=== PATIENT | male | born 1965 | race African-American/Black ===

== ENCOUNTER 2017-02-10 02:06 | Observation (INO) | payer SELFPAY ==
[2017-02-10] VITALS (10 sets, daily range): BP systolic 113–183; BP diastolic 55–98; PULSE 58–76; RESP 16–20; TEMP 96.8–99; O2SAT 97–100
[~2017-02-10 02:06] MED LIST: INDO50CA PO
[2017-02-10] MEDS ORDERED: ASPIRIN 81 MG CHEW TAB PO SCH (02:20)
[2017-02-10] MEDS: NITROGLYCERIN 0.4 MG SL 25 TABS/BTL SL PRN ×2 (02:46→02:51)
[2017-02-10] MEDS ORDERED: SODIUM CHLORIDE 0.9% FLUSH 10 ML FLUSH IV FLUSH PRN (03:45)
[2017-02-10] MEDS ORDERED: REGADENOSON INJ 0.4 MG/5 ML SYR IV ONE (03:48)
--- NOTE | 2017-02-10 03:48 | PD ---
HPI Chief Complaint: Chest Pain Time Seen by Provider: 03:47 Travel History International Travel<30 days: No Contact w/Intl Traveler<30days: No Traveled to known affect area: No History of Present Illness HPI 51-year-old male presents to the emergency department for complaint of a sided chest pain proximally one hour prior to arrival to the emergency department that awakened him from sleep. Chest pain is 5-6/10 in intensity. Patient is able to drive herself to the hospital by private vehicle. Patient states he awakened from sleep with left-sided chest pain with mild radiation to the left posterior shoulder. No associated shortness of breath sweats nausea vomiting or otherwise referred pain except as mentioned. No primary care provider. Remote history of hypertension. Is not taking any prescription medications. Has had chest pain and the past with workup was negative stress test. Did take one Ecotrin prior to arrival to the emergency department. No history of recent long distance travel protracted bedrest surgical procedure personal history of family history of DVT or PE. Patient also denies personal history of CAD, dyslipidemia diabetes, tobaccoism or family history premature onset CAD. No recent respiratory illness or febrile illness. No injury. No skin rash. Patient is unable to identify exacerbating or alleviating factors. PFSH Past Medical History Narrative Medical Hypertension-untreated; herniorrhaphy; no tobacco use no alcohol use; nursing notes reviewed Cancer: No Cardiovascular Problems: Yes (hx of irregular heart beat) Diabetes: No Diminished Hearing: No GERD: Yes Hepatitis: No Hiatal Hernia: No Herniated Disk: Yes (LUMBAR) Hypertension: Yes (NO MEDS) Inguinal Hernia: Yes (LEFT GROIN AREA - HERNIA) Medical other: Yes (hx of reflux disease back lumbar) Musculoskeletal: Yes (LUMBAR BACK PAIN) Respiratory: No Immunizations Current: Yes Thyroid Disease: No Tetanus Vaccination: Unknown Influenza Vaccination: No Past Surgical History Abdominal Surgery: Yes (LEFT HERNIA REPAIR 2010) Other Surgery: Yes (NASAL SURGERY 2001) Social History Alcohol Use: No Tobacco Use: No Substance Use: No Allergies-Medications (Allergen,Severity, Reaction): Coded Allergies: No Known Allergies (Verified , 05/04/16) Reported Meds & Prescriptions Reported Meds & Active Scripts Active Indomethacin 50 Mg Cap 50 Mg PO Q8HR 10 Days Take with food, milk, or antacids to decrease stomach adverse effects. Review of Systems Except as stated in HPI: all other systems reviewed are Neg General / Constitutional: No: Fever, Chills HENT: No: Headaches Cardiovascular: Positive: Chest Pain or Discomfort (his chest pain or similar) Respiratory: No: Cough, Shortness of Breath Gastrointestinal: No: Nausea, Vomiting, Abdominal Pain Genitourinary: No: Flank Pain ( abdominal) Musculoskeletal: No: Myalgias, Arthralgias Skin: No Rash Neurologic: No: Weakness Psychiatric: Positive: Anxiety Endocrine: No: Heat Intolerance, Cold Intolerance Physical Exam Narrative Well-developed well-nourished male in no acute distress no respiratory distress GENERAL: SKIN: Warm and dry. HEAD: Normocephalic. EYES: No scleral icterus. No injection or drainage. NECK: Supple, trachea midline. No JVD or lymphadenopathy. CARDIOVASCULAR: Regular rate and rhythm without murmurs, gallops, or rubs. RESPIRATORY: Breath sounds equal bilaterally. No accessory muscle use. GASTROINTESTINAL: Abdomen soft, non-tender, nondistended. MUSCULOSKELETAL: No cyanosis, or edema. BACK: Nontender without obvious deformity. No CVA tenderness. Data Data Last Documented VS Vital Signs Date Time Temp Pulse Resp B/P (MAP) Pulse Ox O2 Delivery O2 Flow Rate FiO2 02/10/17 02:56 18 02/10/17 02:21 99.0 72 183/98 (126) 100 02/10/17 02:06 Room Air Orders Orders Admit Order (Ed Use Only) (02/10/17 ) ^ Saline Lock (02/10/17 03:46) Resp Oxygen Jon C Titrat 1-4 L (02/10/17 ) Notify Dr: Other (02/10/17 03:46) Sodium Chloride 0.9% Flush (Ns Flush) (02/10/17 09:00) Sodium Chloride 0.9% Flush (Ns Flush) (02/10/17 04:00) Place In Observation (02/10/17 03:45) Activity Bed Rest With Brp (02/10/17 03:45) Vital Signs (Adult) Q4H (02/10/17 03:45) Cardiac Rhythm .As Directed (02/10/17 03:45) Notify Dr: Other .PRN (02/10/17 03:45) Notify Parameters (02/10/17 03:45) Resp Oxygen Nasal Cannula (02/10/17 ) Diet Npo (02/10/17 Breakfast) Ckmb (Isoenzyme) Profile (02/10/17 05:45) Ckmb (Isoenzyme) Profile (02/10/17 08:45) Troponin I (02/10/17 05:45) Troponin I (02/10/17 08:45) Electrocardiogram (02/10/17 05:45) Electrocardiogram (02/10/17 08:45) ^ Obtain (02/10/17 03:45) Sodium Chloride 0.9% Flush (Ns Flush) (02/10/17 03:45) Sodium Chloride 0.9% Flush (Ns Flush) (02/10/17 09:00) Hammer Smith / Telemetry MEL.Q8H (02/10/17 03:45) MDM Medical Decision Making Medical Screen Exam Complete: Yes Emergency Medical Condition: Yes Medical Record Reviewed: Yes Interpretation(s) Chest x-ray no lobar infiltrate poor inspiratory effort poor inspiratory effort Vital Signs Date Time Temp Pulse Resp B/P (MAP) Pulse Ox O2 Delivery O2 Flow Rate FiO2 02/10/17 02:56 18 02/10/17 02:21 99.0 72 20 183/98 (126) 100 02/10/17 02:06 Room Air Metabolic panel values grossly within normal limits Troponin I less than 0.02, not elevated CK 373 mildly elevated with CK-MB of 1.1 not elevated MB percent 0.3% not elevated EKG sinus rhythm rate 62 and ventricular conduction delay no acute ST elevation or injury pattern change noted Coagulation studies within normal limits CBC is automated differential no leukocytosis white count normal 8400 with normal automated differential and hemoglobin 15.5 and normal range platelet count of 2 59,000 Differential Diagnosis Chest pain, atypical chest pain, ACS, myocardial infarction, esophageal spasm, PE, CHF, cholecystitis, musculoskeletal pain, aortic dissection, aortic aneurysm Narrative Course Patient placed on potline monitor IV access obtained specimens collected and sent for resulting patient administered aspirin 162 mg by mouth along with sublingual nitroglycerin 0.4 mg Balsam pain at rest while waiting for medication be administered a decreased on its own from 5-6/10 intensity was 3-4/ 10 intensity After 2 sublingual nitroglycerin pain is 0/10 intensity patient is informed of normal range value of troponin I less than 0.02 and no elevation of CK-MB percent Patient is aware plan for observation admission to chest pain center per protocol and is agreeable Patient's case discussed with on-call medicine physician Dr. Savage for observation admission to chest pain center at [place] Physician Communication Physician Communication discussed with DR Savage for [facility] Diagnosis Primary Impression: Chest pain Admitting Information Admitting Physician Requests: Observation Nan Perez MD Feb 10, 2017 03:48
[2017-02-10] MEDS ORDERED: SODIUM CHLORIDE 0.9% FLUSH 10 ML FLUSH IVF PRN (04:00)
[2017-02-10 05:22] LABS: BLOOD UREA NITROGEN 11 MG/DL (7-18); GLOMERULAR FILTRATION RATE 86 ML/MIN (>89)
[2017-02-10 05:23] LABS: ANION GAP 5 MEQ/L (5-15); BICARBONATE 31.4 MEQ/L (21.0-32.0); CHLORIDE 105 MEQ/L (98-107); CREATINE KINASE 373 U/L (39-308); POTASSIUM 3.7 MEQ/L (3.5-5.1); SODIUM (NA) 141 MEQ/L (136-145)
[2017-02-10 05:24] LABS: CKMB 1.1 NG/ML (0.5-3.6)
[2017-02-10 05:27] LABS: AUTOMATED NEUTROPHIL # 5.1 TH/MM3 (1.8-7.7); BASOPHIL # 0.1 TH/MM3 (0-0.2); BASOPHIL % 0.9 % (0.0-2.0); EOSINOPHIL # 0.4 TH/MM3 (0-0.4); EOSINOPHIL % 5.3 % (0.0-4.0); HEMO FLAGS DIFF FINAL; LYMPH % 26.4 % (9.0-44.0); LYMPHOCYTE # 2.2 TH/MM3 (1.0-4.8); MEAN CORPUSCULAR HEMOGLOBIN 29.3 PG (27.0-34.0); MEAN CORPUSCULAR HGB CONC 32.9 % (32.0-36.0); MONO % 7.5 % (0.0-8.0); NEUT % 59.9 % (16.0-70.0); PLATELET COUNT 259 TH/MM3 (150-450); RED BLOOD COUNT 5.28 MIL/MM3 (4.50-5.90); RED CELL DISTRIBUTION WIDTH 12.1 % (11.6-17.2); WHITE BLOOD COUNT 8.4 TH/MM3 (4.0-11.0)
[2017-02-10 05:28] LABS: APTT (PATIENT) 24.4 SEC (24.3-30.1); INTERNATIONAL NORMALIZED RATIO 0.9 RATIO
[2017-02-10 06:53] LABS: CREATINE KINASE 293 U/L (39-308)
[2017-02-10 07:05] LABS: CKMB 0.9 NG/ML (0.5-3.6)
[2017-02-10] MEDS: SODIUM CHLORIDE 0.9% FLUSH 10 ML FLUSH IV FLUSH SCH ×2 (08:45→21:56)
[2017-02-10 08:59] LABS: CREATINE KINASE 322 U/L (39-308)
[2017-02-10] MEDS ORDERED: SODIUM CHLORIDE 0.9% FLUSH 10 ML FLUSH IV FLUSH SCH (09:00)
[2017-02-10 09:12] LABS: CKMB 0.8 NG/ML (0.5-3.6)
--- NOTE | 2017-02-10 11:12 | HHI.HP ---
[facility] Service [facility] Primary Care Physician No Primary Care Physician Admission Diagnosis chest pain Diagnoses: (1) Chest pain Diagnosis: Principal (2) Hypertension Diagnosis: Secondary Chief Complaint: Chest pain Travel History International Travel<30 Days: No Contact w/Intl Traveler <30 Da: No Traveled to Known Affected Are: No History of Present Illness . Written by Bryce Castillo, acting as scribe for Dr. Sepulveda on 02/10/17 at 11:02 51-year-old Afro-[place] male with known history of hypertension, back pain who presented to hospital because of long-standing chest discomfort. Patient states that he has been explained discomfort for 5-6 months. He describes the pain as 7-8/10 on a pain scale. Located left lateral chest without any radiation to neck, back, shoulder, arm. There is some associated heart racing. Without any nausea, vomiting, diaphoresis, shortness breath, lightheadedness, dizziness. They usually last 5-10 minutes and resolved on its own. States the pain is worse over the last 6 months after he eats. During those episodes he does get discomfort, heart racing and increased mucus were he has to spit up mucus. No nausea or vomiting. As before the pain usually goes away within 10 minutes. Patient states that he had an episode like this 19 years ago in which this happened during eating ground beef. He had a full workup done with stress test, endoscopies, laboratory work and was found to have no acute abnormalities at that time. Patient was prompted to come to the ER this time because he woke up at 1:15 AM in the morning with the same symptoms. He was concerned that he may be having heart attack since his symptoms usually happen after he eats. This time is happening when he was lying down and sleeping. Patient does have history of hypertension, however his medication was discontinued because he lost weight, however he has gained 75 pounds back. On presentation he did have elevated blood pressure. Patient had workup done in emergency department and it was recommended that the patient be observed in the chest pain center for further evaluation and management Review of Systems Cardiovascular: COMPLAINS OF: Chest pain, Palpitations Past Family Social History Past Medical History Hypertension, untreated patient was taken off medications for the weight loss Chronic back pain Right hip pain Past Surgical History Left inguinal hernia repair Nasal surgery Reported Medications Reported Meds & Active Scripts Active Indomethacin 50 Mg Cap 50 Mg PO Q8HR 10 Days Take with food, milk, or antacids to decrease stomach adverse effects. Allergies: Coded Allergies: No Known Allergies (Verified , 05/04/16) Family History Reviewed and significant for mother alive at age 73, father alive at age 76 both of which are in good health Social History Denies alcohol and tobacco use. Physical Exam Vital Signs Vital Signs Date Time Temp Pulse Resp B/P (MAP) Pulse Ox O2 Delivery O2 Flow Rate FiO2 02/10/17 08:00 96.8 63 20 144/91 (108) 98 02/10/17 07:37 02/10/17 07:03 98 Room Air 02/10/17 07:00 98.1 58 18 113/55 (74) 98 Room Air 02/10/17 04:54 62 18 127/68 (87) 98 Room Air 02/10/17 02:56 18 02/10/17 02:21 100 21 02/10/17 02:21 99.0 72 20 183/98 (126) 100 02/10/17 02:06 Room Air Physical Exam GENERAL: Well-developed, well-nourished, in no acute distress. alert and orientated HEENT: Head is normocephalic without any lesions or masses noted. Facial features are symmetric. Eyes: Pupils equal round reactive to light. Extraocular muscles are intact. Conjunctivae were clear. Oropharyngeal: Pharynx without any erythema edema. Tongue is midline without deviation. Buccal mucosa is moist without any masses or lesions NECK: Supple without any masses. Trachea midline no deviation. No JVD, no bruits are appreciated CARDIAC: Regular rhythm, regular rate. S1/S2 are heard. No murmurs gallops or rubs. Reproducible tenderness noted in the left lateral chest LUNGS: Clear to auscultation bilaterally. No wheeze, rhonchi or rales. No use of accessory muscles on inspiration or expiration. ABDOMEN: Soft, nontender. No tenderness noted in epigastric region. Bowel sounds heard in all 4 quadrants. No organomegaly or masses. Negative rebound, negative guarding EXTREMITIES: No edema, pulses are equal bilaterally. No cyanosis or clubbing NEUROLOGY: Mood and affect appear appropriate. Cranial nerves II through XII grossly intact. Muscle strength 5/5 in upper and lower extremities bilaterally. Deep tendon reflexes are 2+ in upper and lower extremities bilaterally. Laboratory Laboratory Tests Test 02/10/17 02:26 02/10/17 06:27 02/10/17 08:30 White Blood Count 8.4 Red Blood Count 5.28 Hemoglobin 15.5 Hematocrit 47.0 Mean Corpuscular Volume 89.0 Mean Corpuscular Hemoglobin 29.3 Mean Corpuscular Hemoglobin Concent 32.9 Red Cell Distribution Width 12.1 Platelet Count 259 Mean Platelet Volume 7.3 Neutrophils (%) (Auto) 59.9 Lymphocytes (%) (Auto) 26.4 Monocytes (%) (Auto) 7.5 Eosinophils (%) (Auto) 5.3 Basophils (%) (Auto) 0.9 Neutrophils # (Auto) 5.1 Lymphocytes # (Auto) 2.2 Monocytes # (Auto) 0.6 Eosinophils # (Auto) 0.4 Basophils # (Auto) 0.1 CBC Comment DIFF FINAL Differential Comment Prothrombin Time 10.0 Prothromb Time International Ratio 0.9 Activated Partial Thromboplast Time 24.4 Blood Urea Nitrogen 11 Creatinine 1.10 Random Glucose 102 Calcium Level 8.8 Sodium Level 141 Potassium Level 3.7 Chloride Level 105 Carbon Dioxide Level 31.4 Anion Gap 5 Estimat Glomerular Filtration Rate 86 Total Creatine Kinase 373 293 322 Creatine Kinase MB 1.1 0.9 0.8 Creatine Kinase MB % 0.3 0.2 Troponin I LESS THAN 0.02 LESS THAN 0.02 LESS THAN 0.02 Result Diagram: 02/10/1722502/10/17225 Caprini VTE Risk Assessment Caprini VTE Risk Assessment: No/Low Risk (score <= 1) Caprini Risk Assessment Model Point Value = 1 Point Value = 2 Point Value = 3 Point Value = 5 Age 41-60 Minor surgery BMI > 25 kg/m2 Swollen legs Varicose veins or History of unexplained or recurrent spontaneous Oral contraceptives or hormone replacement Sepsis (< 1 month) Serious lung disease, including pneumonia (< 1 month) Abnormal pulmonary function Acute myocardial infarction Congestive heart failure (< 1 month) History of inflammatory bowel disease Medical patient at bed rest Age 61-74 Arthroscopic surgery Major open surgery (> 45 min) Laparoscopic surgery (> 45 min) Malignancy Confined to bed (> 72 hours) Immobilizing plaster cast Central venous access Age >= 75 History of VTE Family history of VTE Factor V Leiden Prothrombin [id number] Lupus anticoagulant Anticardiolipin antibodies Elevated serum homocysteine Heparin-induced thrombocytopenia Other congenital or acquired thrombophilia Stroke (< 1 month) Elective arthroplasty Hip, pelvis, or leg fracture Acute spinal cord injury (< 1 month) Prophylaxis Regimen Total Risk Factor Score Risk Level Prophylaxis Regimen 0-1 Low Early ambulation 2 Moderate Order ONE of the following: *Sequential Compression Device (SCD) *Heparin 5000 units SQ BID 3-4 Higher Order ONE of the following medications: *Heparin 5000 units SQ TID *Enoxaparin/Lovenox 40 mg SQ daily (WT < 150 kg, CrCl > 30 mL/min) *Enoxaparin/Lovenox 30 mg SQ daily (WT < 150 kg, CrCl > 10-29 mL/min) *Enoxaparin/Lovenox 30 mg SQ BID (WT < 150 kg, CrCl > 30 mL/min) AND/OR *Sequential Compression Device (SCD) 5 or more Highest Order ONE of the following medications: *Heparin 5000 units SQ TID (Preferred with Epidurals) *Enoxaparin/Lovenox 40 mg SQ daily (WT < 150 kg, CrCl > 30 mL/min) *Enoxaparin/Lovenox 30 mg SQ daily (WT < 150 kg, CrCl > 10-29 mL/min) *Enoxaparin/Lovenox 30 mg SQ BID (WT < 150 kg, CrCl > 30 mL/min) AND *Sequential Compression Device (SCD) Assessment and Plan Assessment and Plan Chest pain Patient with increased risk factors include age, hypertension Patient has been ruled out for acute coronary event with serial cardiac enzymes is negative, serial EKGs do not show any changes Will pursue nuclear stress test rule out any underlying ischemia Patient was counseled extensively on other etiologies to include muscle skeletal, gastroesophageal reflux, gastritis History of hypertension Blood pressure was elevated at 183/98 on presentation, however it did improve without any treatment Consider restarting blood pressure medication prior to discharge DVT prevention Low risk, early ambulation This note was transcribed by lopez Castillo. I, Dr. Sung Arceo personally performed the history, physical exam, and medical decision making; and confirmed the accuracy of the information in the transcribed note. Authenticated by Dr. Sung Arceo 02/10/17 at 11:17. Bryce Castillo Feb 10, 2017 11:12 Sung Quach MD Feb 11, 2017 08:34
--- NOTE | 2017-02-10 12:13 | EKG ---
Date Performed: 02/10/2017 Time Performed: 02:20:19 PTAGE: 51 years EKG: Sinus rhythm INTRAVENTRICULAR CONDUCTION DELAY ABNORMAL ECG Since PREVIOUS TRACING , no significant change noted PREVIOUS TRACIN05/05/2011 15.34 DOCTOR: Amandeep Tompkins Interpretating Date/Time 02/10/2017 12:12:37
--- NOTE | 2017-02-10 12:13 | EKG ---
Date Performed: 02/10/2017 Time Performed: 06:34:34 PTAGE: 51 years EKG: NORMAL Sinus rhythm RIGHT BUNDLE BRANCH BLOCK NEW T-WAVE CHANGES COMPARED TO THE PRIOR TRACING AND NONSPECIFIC BUT CLINI DOC CORRELATION IS NEEDED. ABNORMAL ECG PREVIOUS TRACING : 02/10/2017 02.20 DOCTOR: Amandeep Tompkins Interpretating Date/Time 02/10/2017 12:13:17
--- NOTE | 2017-02-10 13:06 | RADRPT ---
EXAM DATE/TIME: 02/10/2017 11:20 [facility] COMPARISON: No previous studies available for comparison. INDICATIONS : Left chest pain radiating to the left shoulder. Angina. DOSE: 35 mCi Tc99m Myoview at stress. 10.8 mCi Tc99m Myoview at rest. 0.4 mg Lexiscan STRESS SYMPTOMS: None noted. EJECTION FRACTION: 45% MEDICAL HISTORY : Hypertension. Gastroesophageal reflux disease. SURGICAL HISTORY : Inguinal hernia repair. ENCOUNTER: Initial ACUITY: 1 day PAIN SCALE: 6/10 LOCATION: Left chest TECHNIQUE: The patient underwent pharmacologic stress with infusion of prescribed dose. Continuous ECG tracing was monitored during stress. Gated SPECT imaging was performed after stress and conventional SPECT i maging was performed at rest. The examination was performed on a SPECT/CT scanner, both attenuation and non-corrected datasets were reviewed. FINDINGS: DISTRIBUTION: The maximum perfused segment at stress is in the lateral wall. PERFUSION STUDY: Mildly diminished relative perfusion involving the anteroseptal region without evidence of redistribu tion. GATED STUDY: Mild global hypokinesis. CONCLUSION: Mild LV dysfunction. No reversible ischemia. RISK CATEGORY: Intermediate (1-3% Annual Mortality Rate) Wilmar Xiong MD on February 10, 2017 at 13:00 Board Certified Radiologist. This report was verified electronically.
--- NOTE | 2017-02-10 13:58 | EKG ---
Date Performed: 02/10/2017 Time Performed: 08:20:56 PTAGE: 51 years EKG: SINUS BRADYCARDIA Right bundle branch block NONSPECIFIC ST & T-WAVE ABNORMALITY ABNORMAL EC G No significant change from prior electrocardiogram. PREVIOUS TRACING : 02/10/2017 06.34 DOCTOR: Osmar Fabian Interpretating Date/Time 02/10/2017 13:57:58
[2017-02-10] MEDS: CARVEDILOL 3.125 MG TAB PO SCH ×2 (14:14→21:55)
[2017-02-10] MEDS: LISINOPRIL 5 MG TAB PO SCH (14:14)
[2017-02-10] MEDS: PANTOPRAZOLE SOD 40 MG DELAYED RELEASE TAB PO SCH (14:14)
--- NOTE | 2017-02-10 14:42 | TR ---
Date Performed: 02/10/2017 Time Performed: 11:53:17 DOCTOR: Juan Hernandez DRUG LIST: CLINICAL HISTORY: REASON FOR TEST: Chest pain REASON FOR ENDING: OBSERVATION: CONCLUSION: Lexiscan stress test was performed under standard four minute protocol. Radionuclid e was injected one minute prior to ending the test. No electrocardiographic abormalities were present to suggest ischemia. Nuclear imaging and interpretation are pending. COMMENTS:
--- NOTE | 2017-02-10 22:45 | MB ---
cc: MARCO ANTONIO DUCKWROTH DO DATE OF CONSULTATION February 10, 2017 DATE OF 1965 REASON FOR CONSULTATION Cardiac recommendations, possible cardiomyopathy. HISTORY OF PRESENT ILLNESS Antoine Joe is a pleasant and 51-year-old male who presented to [facility] due to 5-6 months of chest pain. It appears that he gets chest pain on the center and left side of his chest which is burning in nature. He occasionally gets racing heart beat with that. He denies nausea, vomiting diaphoresis or shortness of breath with the episodes. These episodes usually last for about 5-10 minutes. The episode seem to come on after he eats. He had similar type episodes around 19 years ago after eating ground beef. He was told that he could be on a pill and that he could continue to eat ground beef but he just decided to cut ground beef out of his diet. At that time 19 years ago he had a full workup including stress test, endoscopies and laboratories and was not found to have any acute abnormalities. He states that the day before coming into the emergency room he ate loaded potato soup with chips for lunch and then a sandwich for dinner. He woke up around 1:00 a.m. with similar type feeling of burning in the left side of his chest into the epigastric region. He was concerned that he was having a heart attack and so he came to the emergency room. He was admitted to the Chest Pain Center and underwent a pharmacologic nuclear stress test. The stress test was read as no reversible ischemia and had mild LV dysfunction with an ejection fraction of 45%. I was asked to see him for further cardiovascular recommendations for possible cardiomyopathy, chest pain and hypertension. In speaking to him he has no further complaints. He also notes that he snores at night and has daytime somnolence. PAST MEDICAL HISTORY 1. Hypertension (the patient was previously treated for this but has since had weight loss and so all of his medications were stopped but since that time he has put the weight back on). 2. Chronic back pain. 3. Right hip pain. PAST SURGICAL HISTORY 1. Left inguinal hernia repair. 2. Nasal surgery. 3. EGD (19 years ago). ALLERGIES NO KNOWN DRUG ALLERGIES. MEDICATIONS 1. Indomethacin 50 milligrams every 8 hours for 10 days. FAMILY HISTORY Mother is alive at the age of 73, father is alive at the age of 76 and both of them are in good health. SOCIAL HISTORY Denies tobacco, alcohol or drug abuse. REVIEW OF SYSTEMS 14-systems were reviewed including osteopathic pertinent positives and negatives above, otherwise negative. PHYSICAL EXAMINATION VITAL SIGNS: Temperature 98.1, heart rate 76, blood pressure 162/83, respirations 20, pulse ox 100% on room air. GENERAL: In general, the patient appears well in no acute distress. Alert, awake and oriented x3. HEENT: Extraocular muscles are intact. Mucous membranes moist. NECK: Supple and overall large. No JVD at 45 degrees. Carotid upstroke is brisk in nature. HEART: Heart is regular rate and rhythm. Positive first and second heart sounds with no murmurs, gallops or rubs. LUNGS: Clear to auscultation bilaterally. No wheezes, rales or rhonchi. ABDOMEN: Soft, nontender, nondistended. No organomegaly noted. EXTREMITIES: Show no clubbing, cyanosis or edema. Femoral and distal pulses intact bilaterally. NEUROLOGICALLY: No focal deficits. SKIN: Warm, dry and intact. OSTEOPATHIC: No kyphoscoliosis. Mild lordosis. No paraspinal tender points. LABORATORY FINDINGS Hemoglobin 15.5, hematocrit 47.0, platelets 259. Potassium 3.7, BUN 11, creatinine 1.1. Troponin negative x3. CARDIOLOGY STUDIES Electrocardiogram (February 10, 2017 at 08:20) sinus bradycardia, right bundle branch block, nonspecific ST-T wave changes. IMPRESSION 1. Noncardiac chest pain, most likely GI in nature. 2. Possible gastric reflux. 3. Pharmacologic nuclear stress test (February 10, 2017) showing no definitive ischemia, ejection fraction 45%. 4. Possible cardiomyopathy with ejection fraction of 45%. 5. Obesity with a BMI of 42.9. 6. Probable sleep apnea. 7. Hypertension. RECOMMENDATIONS 1. Mr. Joe appears to be having more than likely reflux from eating and not cardiac chest pain. 2. I discussed this with the primary team and most likely he can have a workup by GI in the outpatient setting. 3. Overall, it appears that he most likely has sleep apnea as he does have an enlarged neck, an elevated BMI as well as snoring and daytime somnolence. I discussed this with the patient and he should have this worked up in the outpatient setting. 4. As far as possible cardiomyopathy this is more than likely due to the gating during nuclear stress test. We will obtain an echocardiogram to look at his overall left ventricular function, possible valvulopathies and cardiac structure. 5. From a cardiovascular standpoint no further inpatient workup is needed other than the echocardiogram. 6. For his hypertension he has been placed on Coreg and lisinopril, and if his ejection fraction is low these will be his treatment for his cardiomyopathy. 7. If there is any questions about his echocardiogram in the morning, please call, we will plan to see him on an as-needed basis. 8. A card was left for Mr. Joe for followup in the office with myself in 2-4 weeks. Thank you for allowing me to see Antoine Joe. If there any questions please do not hesitate to call. Marco Antonio Duckworth DO VGP/EO /5:22 PM /10:20 PM MTDGuy
[2017-02-11 01:51] VITALS: BP 134/92; PULSE 57; RESP 18; TEMP 98.5; O2SAT 99
[2017-02-11 05:05] VITALS: BP 131/89; PULSE 60; RESP 16; TEMP 98.2; O2SAT 100
[2017-02-11 08:00] VITALS: BP 136/75; PULSE 56; PULSE 60; RESP 18; TEMP 98; O2SAT 95
[2017-02-11 09:55] VITALS: PULSE 60
[2017-02-11] MEDS: CARVEDILOL 3.125 MG TAB PO SCH (10:01)
[2017-02-11] MEDS: PANTOPRAZOLE SOD 40 MG DELAYED RELEASE TAB PO SCH (10:01)
[2017-02-11] MEDS: SODIUM CHLORIDE 0.9% FLUSH 10 ML FLUSH IV FLUSH SCH (10:01)
[2017-02-11] MEDS: LISINOPRIL 5 MG TAB PO SCH (10:01)
[2017-02-11 11:24] LABS: HDL CHOLESTEROL 59.1 MG/DL (40.0-60.0)
[2017-02-11 12:00] VITALS: BP 128/79; PULSE 65; RESP 17; TEMP 98.1; O2SAT 94
--- NOTE | 2017-02-11 12:50 | ECHRPT ---
Indication: LV Fxn CONCLUSIONS Mild concentric left ventricular hypertrophy. The left ventricular systolic function is normal with an estimated ejection fraction in the range of 55-60%. No regional wall motion abnormalities are present. The right ventricular systoilc function is mildly decreased. Trivial pulmonary valve regurgitation. The inferior vena cava was not well visualized. BP: / HR: Rhythm: MEASUREMENTS (Male / Female) Normal Values Technical Quality:Adequate 2D ECHO LV Diastolic Diameter PLAX 5.1 cm 4.2 - 5.9 / 3.9 - 5.3 cm LV Systolic Diameter PLAX 4.0 cm IVS Diastolic Thickness 1.5 cm 0.6 - 1.0 / 0.6 - 0.9 cm LVPW Diastolic Thickness 1.1 cm 0.6 - 1.0 / 0.6 - 0.9 cm LV Relative Wall Thickness 0.5 RV Internal Dim ED PLAX 2.0 cm M-MODE Aortic Root Diameter MM 3.3 cm AV Cusp Separation MM 2.6 cm DOPPLER MR Peak Velocity 323.0 cm/s MR Peak Gradient 41.7 mmHg Mitral E Point Velocity 79.0 cm/s Mitral A Point Velocity 57.8 cm/s Mitral E to A Ratio 1.4 TR Peak Velocity 111.0 cm/s TR Peak Gradient 4.9 mmHg FINDINGS LEFT VENTRICLE Mild concentric left ventricular hypertrophy. The left ventricular systolic function is normal with an estimated ejection fraction in the range of 55-60%. No regional wall motion abnormalities are present. RIGHT VENTRICLE The right ventricular systoilc function is mildly decreased. LEFT ATRIUM The left atrial size is normal. RIGHT ATRIUM The right atrial size is normal. ATRIAL SEPTUM Normal atrial septal thickness without atrial level shunting by limited color doppler interrogation. AORTA The aortic root and proximal ascending aorta are normal in size on limited imaging. MITRAL VALVE Structurally normal mitral valve. No mitral valve stenosis or regurgitation. AORTIC VALVE Trileaflet aortic valve. No aortic valve stenosis or regurgitation. TRICUSPID VALVE Structurally normal tricuspid valve. No tricuspid valve stenosis or regurgitation. PULMONARY VALVE Trivial pulmonary valve regurgitation. VESSELS The inferior vena cava was not well visualized. PERICARDIUM No pericardial effusion. Osmar Fabian MD (Electronically Signed) Final Date:11 February 2017 12:49
[2017-02-11] MEDS ORDERED: PANT40TA3 PO (15:49)
--- NOTE | 2017-02-11 15:49 | HHI.DCPOC ---
Discharge Care Plan Diagnosis: (1) Hypertension (2) Chest pain (3) Obesity (4) GERD (gastroesophageal reflux disease) Goals to Promote Your Health * To prevent worsening of your condition and complications * To maintain your health at the optimal level Directions to Meet Your Goals Take your medications as prescribed Follow your dietary instruction Follow activity as directed Keep your appointments as scheduled Take your immunizations and boosters as scheduled If your symptoms worsen call your PCP, if no PCP go to Urgent Care Center or Emergency Room Smoking is Dangerous to Your Health. Avoid second hand smoke Call the 24-hour hour crisis hotline for domestic abuse at Sung Quach MD Feb 11, 2017 15:49
[2017-02-11] MEDS ORDERED: CARV3.125 PO (15:58)
[2017-02-11] MEDS ORDERED: LISI-519 PO (15:58)
--- NOTE | 2017-02-14 10:35 | RADRPT ---
EXAM DATE/TIME: 02/10/2017 02:36 [facility] COMPARISON: No previous studies available for comparison. INDICATIONS : Chest pain. MEDICAL HISTORY : Hypertension. SURGICAL HISTORY : None. ENCOUNTER: Initial ACUITY: 1 day PAIN SCORE: 6/10 LOCATION: Left chest FINDINGS: A single view of the chest demonstrates the lungs to be symmetrically hypoinflated with mild bibasila r atelectatic changes. No confluent infiltrate. Accounting for low lung lines, heart size is normal. Osseous structures are intact with some degenerative spurring of the dorsal spine. CONCLUSION: Hypoinflation with mild bibasilar atelectatic changes. Moody Mckeon MD on February 10, 2017 at 2:54 Board Certified Radiologist. This report was verified electronically.
== END 2017-02-11 17:02 | disposition home or self-care (01) ==
LOC: PHED 02:06 → PHEDA 03:47 → PH3B 07:43
PROVIDERS: ADMIT Hospitalist; ATTEND Hospitalist
DX: R07.89 Other chest pain (principal); I10 Essential (primary) hypertension; R94.31 Abnormal electrocardiogram [ECG] [EKG]; E66.9 Obesity, unspecified; Z68.41 Body mass index [BMI] 40.0-44.9, adult
CPT/HCPCS: 71010; 78452; 80048; 80061; 82550; 82552; 84484; 85025; 85610; 85730; 93005; 93017; 93306; 99285; A9502; G0378; J2785

== ENCOUNTER 2017-04-29 12:01 | Emergency (ER) | payer OTHER ==
[~2017-04-29] VITALS: Ht 185.4 cm; Wt 143.0 kg
[~2017-04-29 12:01] MED LIST changes: +CARV3.125 PO; -INDO50CA PO; +LISI-519 PO; +PANT40TA3 PO
[2017-04-29 12:03] VITALS: BP 178/84; PULSE 62; RESP 16; TEMP 98.6; O2SAT 99
[2017-04-29 12:19] VITALS: BP 177/92; PULSE 59; RESP 18; O2SAT 100
--- NOTE | 2017-04-29 12:32 | PD ---
HPI Chief Complaint: Cold / Flu Symptoms Time Seen by Provider: 12:14 Travel History International Travel<30 days: No Contact w/Intl Traveler<30days: No Traveled to known affect area: No History of Present Illness HPI 52-year-old male presents to the emergency department for evaluation of cold symptoms that started 2 days ago. Patient reports sinus congestion, sore throat , chest congestion, cough. Patient denies any chest pain. No fevers or chills. No nausea, vomiting, diarrhea, constipation. Patient states that some of his coworkers have been diagnosed with pneumonia and he is concerned that he may have the same. He denies any history of pneumonia. No exacerbating or alleviating factors. Mild severity. PFSH Past Medical History Hx Anticoagulant Therapy: No Arthritis: No Autoimmune Disease: No Heart Rhythm Problems: No Cancer: No Cardiovascular Problems: No High Cholesterol: No Chemotherapy: No Chest Pain: Yes Congestive Heart Failure: No Cerebrovascular Accident: No Diabetes: No Diminished Hearing: No Endocrine: No GERD: Yes Genitourinary: No Hepatitis: No Hiatal Hernia: No Herniated Disk: Yes (LUMBAR) Hypertension: Yes Immune Disorder: No Inguinal Hernia: Yes (LEFT GROIN AREA - HERNIA) Kidney Stones: No Musculoskeletal: Yes (LUMBAR BACK PAIN) Neurologic: No Psychiatric: No Reproductive: No Respiratory: No Immunizations Current: Yes Renal Failure: No Thyroid Disease: No Ulcer: No Influenza Vaccination: No Past Surgical History Abdominal Surgery: Yes (LEFT HERNIA REPAIR 2010) Body Medical Devices: mesh, herina Cardiac Surgery: No Ear Surgery: No Endocrine Surgery: No Eye Surgery: No Genitourinary Surgery: No Gynecologic Surgery: No Oral Surgery: No Thoracic Surgery: No Other Surgery: Yes (NASAL SURGERY 2001) Social History Alcohol Use: No Tobacco Use: No Substance Use: No Allergies-Medications (Allergen,Severity, Reaction): Coded Allergies: No Known Allergies (Verified Adverse Reaction, Unknown, 04/29/17) Reported Meds & Prescriptions Reported Meds & Active Scripts Active Benzonatate 200 Mg Cap 200 Mg PO TID PRN Coreg (Carvedilol) 3.125 Mg Tab 3.125 Mg PO Q12HR Lisinopril 5 Mg Tab 5 Mg PO DAILY Pantoprazole (Pantoprazole Sodium) 40 Mg Tab 40 Mg PO DAILY Review of Systems Except as stated in HPI: all other systems reviewed are Neg Physical Exam Narrative GENERAL: Well-nourished, well-developed male patient, afebrile. SKIN: Focused skin assessment warm/dry. HEAD: Normocephalic. Atraumatic. ENT: Mucosa pink and moist. No erythema or exudates. No uvular edema. No uvular , palatal, or tonsillar deviation. Airway patent. Nasal turbinates appear normal without nasal blood, purulent drainage or septal hematoma. Bilateral tympanic membranes are clear without erythema or perforation. EYES: No scleral icterus. No injection or drainage. NECK: Supple, trachea midline. No JVD or lymphadenopathy. CARDIOVASCULAR: Regular rate and rhythm without murmurs, gallops, or rubs. RESPIRATORY: Breath sounds equal bilaterally. No accessory muscle use. Lungs sounds are clear to auscultation. GASTROINTESTINAL: Abdomen soft, non-tender, nondistended. MUSCULOSKELETAL: No cyanosis, or edema. BACK: Nontender without obvious deformity. No CVA tenderness. Data Data Last Documented VS Vital Signs Date Time Temp Pulse Resp B/P (MAP) Pulse Ox O2 Delivery O2 Flow Rate FiO2 04/29/17 12:19 59 18 177/92 (120) 100 Room Air 04/29/17 12:03 98.6 Orders Orders Chest, Single Ap (04/29/17 ) Electrocardiogram (04/29/17 ) [facility] Medical Decision Making Medical Screen Exam Complete: Yes Emergency Medical Condition: Yes Medical Record Reviewed: Yes Interpretation(s) Last Impressions Chest X-Ray 04/29/17 0000 Signed Impressions: Service Date/Time: Saturday, April 29, 2017 12:44 - CONCLUSION: No acute disease. Aroldo Garcia MD Differential Diagnosis Viral URI versus bronchitis versus pneumonia Narrative Course 52-year-old male presents to the emergency department for evaluation of cold symptoms that started 2 days ago. He appears well on exam. Vital signs are stable. Chest x-ray is ordered and pending. Chest x-ray shows no acute disease. Symptoms and physical are most consistent with a viral upper respiratory infection. Patient stated to rest, drink plenty of fluids. He'll be discharged with a prescription for Tessalon Perles for cough. He is to follow-up with his primary care physician. He is to return here for any acute worsening of symptoms. The patient was discharged in stable condition with instructions, including return instructions and follow up instructions. Diagnosis Primary Impression: Viral upper respiratory tract infection with cough Referrals: Primary Care Physician call for appointment Patient Instructions: General Instructions, Upper Respiratory Infection (ED) Additional Instructions: Rest. Drink plenty of fluids. [id number] Tylenol ibuprofen as needed. Take benzonatate capsules as instructed as needed for cough. Warm salt water gargles for sore throat. Follow-up with your primary care physician. Return to the emergency department for any acute worsening of symptoms. Med/Other Pt SpecificInfo: Prescription(s) given Scripts Benzonatate (Benzonatate) 200 Mg Cap 200 MG PO TID Y for COUGH, #21 CAP 0 Refills Prov: Mariel Salazar 04/29/17 Disposition: 01 DISCHARGE HOME Condition: Stable Mariel Salazar Apr 29, 2017 12:32
--- NOTE | 2017-04-29 12:56 | RADRPT ---
EXAM DATE/TIME: 04/29/2017 12:44 [facility] COMPARISON: CHEST SINGLE AP, February 10, 2017, 2:36. INDICATIONS : Cough. Congestion. Sore throat. MEDICAL HISTORY : None. SURGICAL HISTORY : None. ENCOUNTER: Initial ACUITY: 3 days PAIN SCORE: 6/10 LOCATION: Bilateral chest FINDINGS: A single view of the chest demonstrates the lungs to be symmetrically aerated without evidence of mas s, infiltrate or effusion. The cardiomediastinal contours are unremarkable. Osseous structures are intact. CONCLUSION: No acute disease. Aroldo Garcia MD on April 29, 2017 at 12:53 Board Certified Radiologist. This report was verified electronically.
[2017-04-29] MEDS ORDERED: BENZ1CAP51 PO (13:07)
--- NOTE | 2017-04-30 22:52 | EKG ---
Date Performed: 04/29/2017 Time Performed: 12:26:59 PTAGE: 52 years EKG: SINUS BRADYCARDIA RIGHT BUNDLE BRANCH BLOCK ABNORMAL ECG PREVIOUS TRACING : 02/10/2017 08.20 Compared to prior tracing no significant change DOCTOR: Hugh Mendez Interpretating Date/Time 04/30/2017 22:51:50
== END 2017-04-29 14:24 | disposition home or self-care (01) ==
LOC: NEPC 12:01
DX: J06.9 Acute upper respiratory infection, unspecified (principal); B34.9 Viral infection, unspecified; R00.1 Bradycardia, unspecified; I45.10 Unspecified right bundle-branch block
CPT/HCPCS: 71010; 93005; 99284